=== PATIENT | female | born 1965 | race Caucasian/White ===

== ENCOUNTER 2018-08-24 18:49 | Emergency (ER) | payer BC, OTHER ==
[~2018-08-24] VITALS: Ht 170.2 cm; Wt 99.8 kg
[~2018-08-24 18:49] MED LIST: ACETAMINOPHN-B1 EACH PO; ALPRAZOLAM2 MG PO; INDERAL LA120 MG PO; VENLAFAXINE HCL75 M2 PO
--- NOTE | 2018-08-24 20:10 | Diagnostic Imaging Report ---
EXAM: KNEE LEFT THREE VIEWS DATE: 08/24/2018 7:03 PM INDICATION: Fall COMPARISON: None FINDINGS: Comminuted patellar fracture is present with no significant distraction. Lipohemarthrosis present. IMPRESSION: Comminuted patellar fracture. Signed by: Dr. Chase Whitney MD on 08/24/2018 8:07 PM
[2018-08-24] MEDS ORDERED: HYDROCODONE/APAP 10MG-325MG TAB PO ONE (20:45)
[2018-08-24 20:56] VITALS: BP 152/88
== END 2018-08-24 20:59 | disposition home or self-care (01) ==
LOC: ER 18:49
DX: S82.035A Nondisplaced transverse fracture of left patella, initial encounter for closed fracture (principal); S80.212A Abrasion, left knee, initial encounter; W01.0XXA Fall on same level from slipping, tripping and stumbling without subsequent striking against object, initial encounter; Y93.01 Activity, walking, marching and hiking; Y92.488 Other paved roadways as the place of occurrence of the external cause; F17.210 Nicotine dependence, cigarettes, uncomplicated
CPT/HCPCS: 99283